=== PATIENT | female | born 1980 | race Two or more races ===

== ENCOUNTER → 2024-05-14 | Emergency (ER) | payer OTHER ==
[~2024-05-14] VITALS: Ht 154.9 cm; Wt 75.3 kg
[~2024-05-14] MED LIST: MEDROL4 MG PO; ZYRTEC10 MG PO
[2024-05-14 09:47] VITALS: BP 136/80; O2SAT 100
== END | disposition home or self-care (01) ==
LOC: ER 09:45
DX: R21 Rash and other nonspecific skin eruption (principal)